=== PATIENT | female | born 1960 | race Caucasian/White ===

== ENCOUNTER 2019-01-19 08:40 | Day surgery (SDC) | payer OTHER ==
[2019-01-18 13:23] VITALS: BMI 25.0
[~2019-01-19 08:40] MED LIST: ACETAMINOPHEN 325 MG TABLET (FP) PO PRN; BSS (NA/CA/MG/K) BALANCED SALT SOLUTION OPHTH SOLN 15 ML BOTTLE OD ONE; CHONDROITIN SU A/HYALUR SOD 1 KIT IO ONE; EPINEPHrine/PF 1 MG/1 ML (1:1,000) AMPULE SQ ONE; LIDOCAINE HCL 1% PRESERVATIVE FREE - 30ML VIAL IO ONE; POVIDONE-IODINE 5% OPHTHALMIC PREP 30 ML SOLUTION OD ONE
[2019-01-19 09:06] VITALS: TEMP 97.4
[2019-01-19] MEDS ORDERED: OFLOXACIN 0.3% OPHTHALMIC SOLUTION 5 ML BOTTLE ONE (09:15)
[2019-01-19] MEDS ORDERED: CYCLOPENTOLATE HCL 1% OPHTH SOLN 2 ML BOTTLE ONE (09:15)
[2019-01-19] MEDS ORDERED: TROPICAMIDE 1% OPHTH SOLN 15 ML BOTTLE ONE (09:16)
[2019-01-19] MEDS ORDERED: KETOROLAC TROMETHAMINE 0.5% EYE DROP 1 DROP DROPS ONE (09:16)
[2019-01-19] MEDS ORDERED: PHENYLEPHRINE 2.5% OPHTH SOLN 15 ML BOTTLE ONE (09:16)
[2019-01-19] MEDS: KETOROLAC TROMETHAMINE 0.5% EYE DROP 1 DROP DROPS OP SCH ×3 (09:20→09:37)
[2019-01-19] MEDS: PHENYLEPHRINE 2.5% OPHTH SOLN 15 ML BOTTLE OP SCH ×3 (09:20→09:37)
[2019-01-19] MEDS: OFLOXACIN 0.3% OPHTHALMIC SOLUTION 5 ML BOTTLE OP SCH ×3 (09:20→09:37)
[2019-01-19] MEDS: CYCLOPENTOLATE HCL 1% OPHTH SOLN 2 ML BOTTLE OP SCH ×3 (09:20→09:37)
[2019-01-19] MEDS: TROPICAMIDE 1% OPHTH SOLN 15 ML BOTTLE OP SCH ×3 (09:20→09:37)
[2019-01-19] MEDS ORDERED: MIDAZOLAM HCL 2 MG/2 ML SINGLE DOSE VIAL ONE (10:18)
[2019-01-19] MEDS ORDERED: TETRACAINE 0.5% OPHTH SOLN 2 ML BOTTLE OD ONE (10:19)
[2019-01-19] MEDS ORDERED: POVIDONE-IODINE 5% OPHTHALMIC PREP 30 ML SOLUTION OD ONE (10:28)
[2019-01-19] MEDS ORDERED: CHONDROITIN SU A/HYALUR SOD 1 KIT IO ONE (10:43)
[2019-01-19] MEDS ORDERED: BSS (NA/CA/MG/K) BALANCED SALT SOLUTION OPHTH SOLN 15 ML BOTTLE OD ONE (10:43)
[2019-01-19] MEDS ORDERED: LIDOCAINE HCL 1% PRESERVATIVE FREE - 30ML VIAL IO ONE (10:43)
[2019-01-19] MEDS ORDERED: EPINEPHrine/PF 1 MG/1 ML (1:1,000) AMPULE SQ ONE (10:47)
[2019-01-19 12:17] VITALS: BP 126/80; PULSE 74
--- NOTE | 2019-01-19 13:03 | OP ---
DATE OF OPERATION: 01/19/2019 OPERATION: Phacoemulsification of right cataract with toric posterior chamber intraocular lens implantation, right eye. Lens used [id number], Diopter power 19.0, Serial No. [id number]. PREOPERATIVE DIAGNOSIS: Cataract, right eye. ASSOCIATED DIAGNOSIS: Astigmatism. POSTOPERATIVE DIAGNOSIS: Cataract, right eye. SURGEON: Trudy Monte M.D. ANESTHESIA: Topical MAC. COMPLICATIONS: None. PROCEDURE: The patient was brought to the operating room and correctly identified along with the operative site as well as correct intraocular lens calhoun. With the patient sitting upright, the 3, 6 and 9 o'clock positions were then marked with a toric marker. The patient was then reclined and positioned in the operating chair and the ling were reinforced under the microscope. The eye was then prepped and draped in the usual sterile fashion including 5% Betadine solution in the conjunctival sac and an eyelid drape. An eyelid speculum was then placed into the right eye. The 100 degree position was marked on the cornea. A paracentesis port was created and 0.5 mL of preservative-free Lidocaine was given intracamerally. Viscoelastic was injected to inflate the anterior chamber. A temporal corneal clear wound was created. A continuous capsulorrhexis was then performed and the nucleus hydrodissected with BSS. The phacoemulsification was then performed of the cataract. During quadrant removal there was some iris prolapse noted to the superior paracentesis. The cataract was then removed without complication with care made not to damage the iris. After the epinucleus was removed, the paracentesis was hydrated. The paracentesis site seemed to be of adequate length. However, the iris had been noted to prolapse through it. So, after the iris was repositioned in its place, a second paracentesis port was created. Cortical material was then irrigated and aspirated from the eye and viscoelastic was injected to inflate the capsular bag. The lens was then injected into the capsular bag and positioned until it was approximately 15 degrees from its final position with the corneal markings. Irrigation and aspiration was then performed of the viscoelastic and, using a combination of irrigation, aspiration and a Sinskey hook as well as BSS on a cannula, the lens was rotated into its final position at 100 degrees. At the end of the procedure all wounds were tested and there was seen to be some mild leaking at the temporal clear corneal wound, so a single 10-0 nylon suture was placed. The wounds were then again tested and noted to be watertight. No further suture was placed. The intraocular lens was noted to be well centered and covered by the anterior capsule border and aligned at 100 degrees. Topical vancomycin and Betadine given and patient's eye patched and shielded, and the patient discharged from the operating room in a stable condition. TRUDY MONTE M.D. [id number] MTDD
== END 2019-01-19 12:18 | disposition home or self-care (01) ==
LOC: JASU-SURG 08:40
PROVIDERS: ATTEND Ophthalmology
PROC: 08RJ3JZ Replacement of Right Lens with Synthetic Substitute, Percutaneous Approach (ICD-10-PCS; principal; 2019-01-19 11:00)
DX: H26.9 Unspecified cataract (principal); H52.201 Unspecified astigmatism, right eye; H21.89 Other specified disorders of iris and ciliary body; E11.9 Type 2 diabetes mellitus without complications; Z79.84 Long term (current) use of oral hypoglycemic drugs
CPT/HCPCS: 82962

== ENCOUNTER 2022-01-24 16:35 | Emergency (ER) | payer OTHER ==
[2022-01-24 17:24] VITALS: BP 131/79; PULSE 82; TEMP 98.2; BMI 25.0
== END 2022-01-24 19:49 | disposition home or self-care (01) ==
LOC: JERFT 16:35
DX: M54.41 Lumbago with sciatica, right side (principal); M54.42 Lumbago with sciatica, left side
CPT/HCPCS: 99283-25